=== PATIENT | female | born 1965 | race African-American/Black ===

== ENCOUNTER 2019-06-29 13:35 | Observation (INO) ==
[2019-06-29] MEDS ORDERED: ASPIRIN 325 MG TABLET PO STA (14:07)
[2019-06-29] MEDS ORDERED: NITROGLYCERIN SL 0.4 MG TABLET SL PRN (14:07)
[2019-06-29 15:02] LABS: Basophils % 0.4 % (0.0-0.8); Eosinophils # 0.1 10*3/uL (0.0-0.87); Eosinophils % 1.1 % (0.00-10.9); Hematocrit 40.5 VOL% (35.7-47.0); Hemoglobin 12.4 GM/DL (12.0-16.0); Immature Granulocytes % 0.2 %; Immature Granulocytes Absolute 0.02 #; Lymphocytes # 2.6 10*3/uL (1.4-4.0); Lymphocytes % 30.7 % (21.3-54.2); Mean Corpuscular HGB Conc 30.6 GM/DL (32-36); Mean Corpuscular Volume 84.9 FL (87-102); Monocytes % 6.2 % (1.7-12.7); Neutrophils % 61.4 % (38.7-73.9); Platelet Count 442 T/CUMM (130-400); Red Blood Count 4.77 MC/CUMM (3.8-5.5); White Blood Count 8.3 T/CUMM (4-12)
[2019-06-29 15:20] LABS: Calcium 9.2 MG/DL (8.5-10.1); Osmolality,Calculated 274.5 MOS/KG (273-304)
[2019-06-29] MEDS ORDERED: LABETALOL 20 MG/4 ML SYRINGE IV STA (17:27)
[2019-06-29] MEDS ORDERED: ACETAMINOPHEN 325 MG TABLET PO PRN (17:36)
[2019-06-29] MEDS ORDERED: INFLUENZA VIRUS VACCINE 0.5 ML SYRINGE IM ONE (20:57)
[2019-06-29] MEDS: cefTRIAXone 1,000 MG in SYRINGE 1 EACH IV SCH (22:10)
[2019-06-30 06:12] LABS: Basophils % 0.6 % (0.0-0.8); Eosinophils # 0.2 10*3/uL (0.0-0.87); Eosinophils % 2.2 % (0.00-10.9); Hematocrit 38.5 VOL% (35.7-47.0); Immature Granulocytes % 0.3 %; Immature Granulocytes Absolute 0.02 #; Lymphocytes # 2.9 10*3/uL (1.4-4.0); Mean Corpuscular HGB Conc 31.2 GM/DL (32-36); Mean Platelet Volume 8.8 FL (9.6-12.0); Monocytes % 7.6 % (1.7-12.7); Neutrophils % 46.3 % (38.7-73.9); Platelet Count 370 T/CUMM (130-400); Red Blood Count 4.53 MC/CUMM (3.8-5.5); Red Cell Distribution Width 15.1 % (9.3-17.3); White Blood Count 6.8 T/CUMM (4-12)
[2019-06-30 06:43] LABS: Calcium 8.9 MG/DL (8.5-10.1); Osmolality,Calculated 276.4 MOS/KG (273-304)
[2019-06-30] MEDS ORDERED: PANTOPRAZOLE 40 MG TABLET PO SCH (09:00)
[2019-06-30] MEDS ORDERED: POTASSIUM CHLORIDE 20 MEQ TABLET PO ONE (10:00)
[2019-06-30] MEDS ORDERED: BISACODYL 5 MG TABLET PO ONE (10:00)
[2019-06-30] MEDS ORDERED: BISACODYL 5 MG TABLET PO SCH ×2 (10:00→21:00)
[2019-06-30] MEDS: LISINOPRIL/HCTZ 20-12.5 MG TABLET PO SCH (10:24)
[2019-06-30] MEDS: ESCITALOPRAM 10 MG TABLET PO SCH (10:24)
[2019-06-30] MEDS: MECLIZINE 12.5 MG TABLET PO SCH (10:24)
[2019-06-30] MEDS: POLYETHYLENE GLYCOL POWDER 255 GM BOTTLE PO SCH (10:25)
[2019-06-30] MEDS ORDERED: POTASSIUM CHLORIDE 20 MEQ TABLET PO PRN (12:48)
[2019-06-30] MEDS: POTASSIUM CHLORIDE 20 MEQ/15 ML UDCUP PO SCH ×2 (15:49→21:51)
[2019-06-30] MEDS: BISACODYL 5 MG TABLET PO SCH (15:49)
[2019-06-30] MEDS ORDERED: POLYETHYLENE GLYCOL POWDER 255 GM BOTTLE NG ONE (18:00)
[2019-06-30] MEDS ORDERED: MAGNESIUM CITRATE 300 ML BOTTLE PO ONE (21:00)
[2019-06-30] MEDS ORDERED: ARIPiprazole 10 MG TABLET PO SCH (21:00)
[2019-06-30] MEDS: PANTOPRAZOLE 40 MG TABLET PO SCH (21:51)
[2019-06-30] MEDS: cefTRIAXone 1,000 MG in SYRINGE 1 EACH IV SCH (22:48)
[2019-06-30] MEDS: ONDANSETRON 4 MG/2 ML VIAL IV PRN (22:48)
[2019-07-01] MEDS: BISACODYL 5 MG TABLET PO SCH ×2 (05:56→06:44)
[2019-07-01] MEDS ORDERED: LINACLOTIDE 145 MCG CAPSULE PO SCH (07:30)
[2019-07-01] MEDS ORDERED: POTASSIUM CHLORIDE RIDER 10 MEQ in PREMIX 1 EACH IV SCH (07:30)
[2019-07-01] MEDS ORDERED: MAGNESIUM CITRATE 300 ML BOTTLE NG ONE (07:30)
[2019-07-01] MEDS ORDERED: POTASSIUM CHLORIDE 20 MEQ/15 ML UDCUP PO ONE (07:30)
[2019-07-01] MEDS: ONDANSETRON 4 MG/2 ML VIAL IV PRN (07:43)
[2019-07-01 07:44] LABS: Albumin 3.2 G/DL (3.4-5.0); Bilirubin,Total 0.4 MG/DL (0.2-1.0); Calcium 8.9 MG/DL (8.5-10.1); Osmolality,Calculated 273.5 MOS/KG (273-304); Thyroid Stimulating Hormone 2.56 uIU/ml (0.358-3.74); Total Protein 7.4 G/DL (6.4-8.3)
[2019-07-01] MEDS ORDERED: LACTATED RINGERS 1,000 ML IV SCH (08:30)
[2019-07-01] MEDS ORDERED: LIDOCAINE 2% 5 ML VIAL ONE (08:35)
[2019-07-01] MEDS ORDERED: PROPOFOL 200 MG/20 ML VIAL IV ONE (08:35)
[2019-07-01] MEDS: LISINOPRIL/HCTZ 20-12.5 MG TABLET PO SCH (11:10)
[2019-07-01] MEDS: MECLIZINE 12.5 MG TABLET PO SCH (11:11)
[2019-07-01] MEDS: ESCITALOPRAM 10 MG TABLET PO SCH (11:11)
[2019-07-01] MEDS: PANTOPRAZOLE 40 MG TABLET PO SCH (11:11)
[2019-07-01] MEDS: POLYETHYLENE GLYCOL POWDER 255 GM BOTTLE PO SCH (11:12)
[2019-07-01] MEDS: POTASSIUM CHLORIDE 20 MEQ/15 ML UDCUP PO SCH (11:46)
[2019-07-01 15:55] VITALS: BP 114/56
== END 2019-07-01 16:30 ==
LOC: EDUNIT# → EDBD → N.ED 13:35 → N.EDINP 13:35 → N.2E 19:41
PROVIDERS: ADMIT Internal Medicine; ATTEND Internal Medicine

== ENCOUNTER 2020-07-21 21:20 | Inpatient (IN) ==
[2020-07-21 22:03] LABS: Basophils % 0.4 % (0.0-0.8); Eosinophils # 0.2 10*3/uL (0.0-0.87); Hematocrit 32.9 VOL% (35.7-47.0); Hemoglobin 10.4 GM/DL (12.0-16.0); Immature Granulocytes % 0.4 %; Immature Granulocytes Absolute 0.02 #; Lymphocytes # 1.1 10*3/uL (1.4-4.0); Lymphocytes % 19.1 % (21.3-54.2); Mean Corpuscular HGB Conc 31.6 GM/DL (32-36); Mean Corpuscular Volume 89.9 FL (87-102); Mean Platelet Volume 8.7 FL (9.6-12.0); Monocytes % 14.1 % (1.7-12.7); Platelet Count 290 T/CUMM (130-400); Red Blood Count 3.66 MC/CUMM (3.8-5.5); Red Cell Distribution Width 14.6 % (9.3-17.3); White Blood Count 5.6 T/CUMM (4-12)
[2020-07-21] MEDS ORDERED: SODIUM CHLORIDE 0.9% 1,000 ML IV STA (22:20)
[2020-07-21 22:24] LABS: INR 1.1; PT Patient Result 11.3 SECS (9.8-11.9)
[2020-07-21 22:33] LABS: Alanine Aminotransferase 54 U/L (13-56); Albumin 3.4 G/DL (3.4-5.0); Alkaline Phosphatase 51 U/L (45-117); Aspartate Amino Transferase 49 U/L (0-37); Bilirubin,Total < 0.39 MG/DL (0.2-1.0); Blood Urea Nitrogen 16 MG/DL (7-18); Calcium 8.7 MG/DL (8.5-10.1); Carbon Dioxide 28 MMOL/L (21-32); Estimated Glom Filtration Rate 66 ML/MIN; Ferritin 34.2 ng/ml (8-252); Glucose 97 MG/DL (74-106); Osmolality,Calculated 277.5 MOS/KG (273-304); Potassium 3.8 MMOL/L (3.5-5.1); Sodium 139 MMOL/L (136-145); Total Protein 6.9 G/DL (6.4-8.3)
[2020-07-21] MEDS ORDERED: AZITHROMYCIN INJ 500 MG in SODIUM CHLORIDE 0.9% 250 ML IV STA (22:41)
[2020-07-21] MEDS ORDERED: ACETAMINOPHEN 325 MG TABLET PO PRN (22:44)
[2020-07-21] MEDS ORDERED: ONDANSETRON 4 MG/2 ML VIAL IV PRN (22:44)
[2020-07-21 22:50] LABS: Bilirubin,Urine Negative (Negative); Blood, Urine Negative (Negative); Glucose,Urine (UA) Negative (Negative); Hyaline Casts,Urine 142 /LPF (0-3); Ketones,Urine Negative (Negative); Mucus,Urine Occasional /LPF (Occasional); Nitrite,Urine Negative (Negative); Protein,Urine Negative; RBC,Urine 1 /HPF (0-4); Squamous Epithelial Cell,Urine Occasional /HPF (0-10); Urine Appearance CLEAR (Clear); Urine Color Amber (Yellow); Urine Specific Gravity 1.024 (1.001-1.035); WBC,Urine <1 /HPF (0-6)
[2020-07-21] MEDS: SODIUM CHLORIDE 0.9% 1,000 ML IV SCH (23:40)
[2020-07-22 05:56] LABS: Basophils % 0.3 % (0.0-0.8); Eosinophils # 0.1 10*3/uL (0.0-0.87); Eosinophils % 1.9 % (0.00-10.9); Hematocrit 33.1 VOL% (35.7-47.0); Hemoglobin 10.4 GM/DL (12.0-16.0); Immature Granulocytes % 0.3 %; Immature Granulocytes Absolute 0.02 #; Lymphocytes # 1.4 10*3/uL (1.4-4.0); Lymphocytes % 21.5 % (21.3-54.2); Mean Corpuscular HGB Conc 31.4 GM/DL (32-36); Mean Corpuscular Volume 91.7 FL (87-102); Mean Platelet Volume 9.4 FL (9.6-12.0); Monocytes % 17.4 % (1.7-12.7); Neutrophils % 58.6 % (38.7-73.9); Platelet Count 295 T/CUMM (130-400); Red Blood Count 3.61 MC/CUMM (3.8-5.5); Red Cell Distribution Width 14.6 % (9.3-17.3); White Blood Count 6.3 T/CUMM (4-12)
[2020-07-22 06:19] LABS: Albumin 3.2 G/DL (3.4-5.0); Calcium 8.7 MG/DL (8.5-10.1); Osmolality,Calculated 273.7 MOS/KG (273-304); Potassium 3.7 MMOL/L (3.5-5.1); Total Protein 7.2 G/DL (6.4-8.3)
[2020-07-22 06:58] LABS: Band Neutrophils 3 % (0-10); Eosinophils 2 % (0-10); Hypochromasia 1+; Lymphocytes 16 % (20-55); Segmented Neutrophils 69 % (50-85); Total Cells Counted 100
[2020-07-22 06:59] LABS: Microcytosis 1+; Platelet Estimate Normal
[2020-07-22] MEDS: PANTOPRAZOLE 40 MG VIAL IV SCH (10:08)
[2020-07-22] MEDS: SODIUM CHLORIDE 0.9% 1,000 ML IV SCH ×2 (10:11→18:22)
[2020-07-22] MEDS: methylPREDNISolone SOD SUC 40 MG/1 ML VIAL IV SCH ×2 (12:02→22:30)
[2020-07-22] MEDS ORDERED: REMDESIVIR 200 MG in SODIUM CHLORIDE 0.9% 210 ML IV ONE (15:00)
[2020-07-22] MEDS: IBUPROFEN 600 MG TABLET PO PRN (18:21)
[2020-07-22] MEDS: AZITHROMYCIN INJ 500 MG in SODIUM CHLORIDE 0.9% 250 ML IV SCH (21:10)
[2020-07-23] MEDS: SODIUM CHLORIDE 0.9% 1,000 ML IV SCH ×2 (00:22→13:17)
[2020-07-23] MEDS: methylPREDNISolone SOD SUC 40 MG/1 ML VIAL IV SCH ×2 (12:45→21:25)
[2020-07-23] MEDS: REMDESIVIR 100 MG in SODIUM CHLORIDE 0.9% 100 ML IV SCH (12:45)
[2020-07-23] MEDS: PANTOPRAZOLE 40 MG VIAL IV SCH (13:10)
[2020-07-23] MEDS: IBUPROFEN 600 MG TABLET PO PRN (13:11)
[2020-07-23] MEDS ORDERED: FUROSEMIDE 40 MG/4 ML VIAL IV ONE (15:00)
[2020-07-23] MEDS: VANCOMYCIN INJ 1,250 MG in SODIUM CHLORIDE 0.9% 250 ML IV SCH (18:30)
[2020-07-23] MEDS: AZITHROMYCIN INJ 500 MG in SODIUM CHLORIDE 0.9% 250 ML IV SCH (21:25)
[2020-07-24] MEDS: methylPREDNISolone SOD SUC 40 MG/1 ML VIAL IV SCH ×2 (05:45→13:37)
[2020-07-24] MEDS: VANCOMYCIN INJ 1,250 MG in SODIUM CHLORIDE 0.9% 250 ML IV SCH ×2 (05:47→16:37)
[2020-07-24] MEDS: IBUPROFEN 600 MG TABLET PO PRN (08:49)
[2020-07-24] MEDS: FUROSEMIDE 40 MG/4 ML VIAL IV SCH (08:50)
[2020-07-24] MEDS: PANTOPRAZOLE 40 MG VIAL IV SCH (08:50)
[2020-07-24 09:12] LABS: Hematocrit 32.8 VOL% (35.7-47.0); Hemoglobin 10.7 GM/DL (12.0-16.0); Immature Granulocytes % 0.3 %; Immature Granulocytes Absolute 0.01 #; Lymphocytes # 1.5 10*3/uL (1.4-4.0); Lymphocytes % 42.2 % (21.3-54.2); Mean Corpuscular HGB Conc 32.6 GM/DL (32-36); Mean Corpuscular Volume 87.9 FL (87-102); Mean Platelet Volume 8.8 FL (9.6-12.0); Monocytes % 4.6 % (1.7-12.7); Neutrophils % 52.9 % (38.7-73.9); Platelet Count 312 T/CUMM (130-400); Red Blood Count 3.73 MC/CUMM (3.8-5.5); Red Cell Distribution Width 14.1 % (9.3-17.3)
[2020-07-24 09:14] LABS: White Blood Count 3.5 T/CUMM (4-12)
[2020-07-24 09:36] LABS: Alanine Aminotransferase 48 U/L (13-56); Albumin 3.1 G/DL (3.4-5.0); Alkaline Phosphatase 42 U/L (45-117); Aspartate Amino Transferase 46 U/L (0-37); Bilirubin,Total < 0.39 MG/DL (0.2-1.0); Blood Urea Nitrogen 9 MG/DL (7-18); Carbon Dioxide 27 MMOL/L (21-32); Estimated Glom Filtration Rate 135 ML/MIN; Glucose 117 MG/DL (74-106); Osmolality,Calculated 282.1 MOS/KG (273-304); Potassium 3.7 MMOL/L (3.5-5.1); Sodium 142 MMOL/L (136-145); Total Protein 6.9 G/DL (6.4-8.3)
[2020-07-24] MEDS: REMDESIVIR 100 MG in SODIUM CHLORIDE 0.9% 100 ML IV SCH (10:09)
[2020-07-24] MEDS: FAMOTIDINE 20 MG TABLET PO SCH (17:43)
[2020-07-24] MEDS: POTASSIUM CHLORIDE 10 MEQ TABLET PO SCH (17:43)
[2020-07-24] MEDS: DEXAMETHASONE 4 MG/1 ML VIAL IV SCH (17:43)
[2020-07-24] MEDS: ASPIRIN EC 81 MG TABLET PO SCH (17:43)
[2020-07-24] MEDS: traMADol 50 MG TABLET PO SCH ×2 (17:44→21:00)
[2020-07-24] MEDS: BENZONATATE 100 MG CAPSULE PO SCH (21:00)
[2020-07-24] MEDS: AZITHROMYCIN INJ 500 MG in SODIUM CHLORIDE 0.9% 250 ML IV SCH (21:00)
[2020-07-24] MEDS: MELATONIN 3 MG TABLET PO SCH (21:00)
[2020-07-24] MEDS: KETOROLAC 15 MG/1 ML VIAL IM SCH (21:56)
[2020-07-25] MEDS: DEXAMETHASONE 4 MG/1 ML VIAL IV SCH ×3 (00:52→16:27)
[2020-07-25] MEDS: VANCOMYCIN INJ 1,250 MG in SODIUM CHLORIDE 0.9% 250 ML IV SCH ×2 (05:36→16:29)
[2020-07-25] MEDS: KETOROLAC 15 MG/1 ML VIAL IM SCH ×3 (05:37→21:29)
[2020-07-25 06:43] LABS: Hematocrit 33.5 VOL% (35.7-47.0); Hemoglobin 10.6 GM/DL (12.0-16.0); Immature Granulocytes % 0.5 %; Immature Granulocytes Absolute 0.02 #; Lymphocytes # 1.5 10*3/uL (1.4-4.0); Lymphocytes % 34.7 % (21.3-54.2); Mean Corpuscular HGB Conc 31.6 GM/DL (32-36); Mean Corpuscular Volume 88.9 FL (87-102); Mean Platelet Volume 9.9 FL (9.6-12.0); Monocytes % 5.6 % (1.7-12.7); Neutrophils % 59.2 % (38.7-73.9); Platelet Count 352 T/CUMM (130-400); Red Blood Count 3.77 MC/CUMM (3.8-5.5); White Blood Count 4.4 T/CUMM (4-12)
[2020-07-25 07:08] LABS: Alanine Aminotransferase 39 U/L (13-56); Albumin 3.1 G/DL (3.4-5.0); Alkaline Phosphatase 44 U/L (45-117); Aspartate Amino Transferase 21 U/L (0-37); Bilirubin,Total < 0.39 MG/DL (0.2-1.0); Blood Urea Nitrogen 14 MG/DL (7-18); Calcium 8.2 MG/DL (8.5-10.1); Carbon Dioxide 28 MMOL/L (21-32); Estimated Glom Filtration Rate 128 ML/MIN; Glucose 105 MG/DL (74-106); Osmolality,Calculated 281.3 MOS/KG (273-304); Potassium 3.2 MMOL/L (3.5-5.1); Sodium 141 MMOL/L (136-145); Total Protein 7.2 G/DL (6.4-8.3)
[2020-07-25] MEDS: FAMOTIDINE 20 MG TABLET PO SCH (08:55)
[2020-07-25] MEDS: LINACLOTIDE 145 MCG CAPSULE PO SCH (08:55)
[2020-07-25] MEDS: BENZONATATE 100 MG CAPSULE PO SCH ×3 (08:56→20:51)
[2020-07-25] MEDS: ASPIRIN EC 81 MG TABLET PO SCH (08:56)
[2020-07-25] MEDS: POTASSIUM CHLORIDE 10 MEQ TABLET PO SCH (08:56)
[2020-07-25] MEDS: traMADol 50 MG TABLET PO SCH ×4 (08:56→20:52)
[2020-07-25] MEDS: FUROSEMIDE 40 MG/4 ML VIAL IV SCH (08:57)
[2020-07-25] MEDS: PANTOPRAZOLE 40 MG VIAL IV SCH (08:58)
[2020-07-25] MEDS: REMDESIVIR 100 MG in SODIUM CHLORIDE 0.9% 100 ML IV SCH (09:21)
[2020-07-25] MEDS: NYSTATIN 500,000 UNIT/5 ML UDCUP SWISH/SWAL SCH (20:51)
[2020-07-25] MEDS: MELATONIN 3 MG TABLET PO SCH (20:51)
[2020-07-25] MEDS: AZITHROMYCIN INJ 500 MG in SODIUM CHLORIDE 0.9% 250 ML IV SCH (21:29)
[2020-07-26] MEDS: KETOROLAC 15 MG/1 ML VIAL IV SCH ×4 (00:09→22:02)
[2020-07-26] MEDS: POTASSIUM CHLORIDE 20 MEQ TABLET PO PRN ×2 (00:10→02:53)
[2020-07-26] MEDS: DEXAMETHASONE 4 MG/1 ML VIAL IV SCH ×3 (01:30→16:53)
[2020-07-26 06:50] LABS: Hematocrit 32.2 VOL% (35.7-47.0); Hemoglobin 10.3 GM/DL (12.0-16.0); Immature Granulocytes % 0.2 %; Immature Granulocytes Absolute 0.01 #; Lymphocytes # 1.5 10*3/uL (1.4-4.0); Lymphocytes % 27.4 % (21.3-54.2); Mean Corpuscular Volume 89.2 FL (87-102); Mean Platelet Volume 9.8 FL (9.6-12.0); Monocytes % 3.8 % (1.7-12.7); Neutrophils % 68.6 % (38.7-73.9); Platelet Count 324 T/CUMM (130-400); Red Blood Count 3.61 MC/CUMM (3.8-5.5); Red Cell Distribution Width 14.1 % (9.3-17.3); White Blood Count 5.5 T/CUMM (4-12)
[2020-07-26 07:16] LABS: Calcium 7.9 MG/DL (8.5-10.1); Osmolality,Calculated 285.1 MOS/KG (273-304); Potassium 3.5 MMOL/L (3.5-5.1)
[2020-07-26] MEDS: traMADol 50 MG TABLET PO SCH ×4 (09:39→22:02)
[2020-07-26] MEDS: LINACLOTIDE 145 MCG CAPSULE PO SCH (09:39)
[2020-07-26] MEDS: ASPIRIN EC 81 MG TABLET PO SCH (09:39)
[2020-07-26] MEDS: POTASSIUM CHLORIDE 20 MEQ TABLET PO SCH ×2 (09:39→22:01)
[2020-07-26] MEDS: BENZONATATE 100 MG CAPSULE PO SCH ×3 (09:40→22:04)
[2020-07-26] MEDS: FAMOTIDINE 20 MG TABLET PO SCH (09:40)
[2020-07-26] MEDS: FUROSEMIDE 40 MG/4 ML VIAL IV SCH (09:40)
[2020-07-26] MEDS: PANTOPRAZOLE 40 MG VIAL IV SCH (09:41)
[2020-07-26] MEDS: NYSTATIN 500,000 UNIT/5 ML UDCUP SWISH/SWAL SCH ×4 (09:42→22:03)
[2020-07-26] MEDS: VANCOMYCIN INJ 1,250 MG in SODIUM CHLORIDE 0.9% 250 ML IV SCH ×2 (09:52→16:50)
[2020-07-26] MEDS: REMDESIVIR 100 MG in SODIUM CHLORIDE 0.9% 100 ML IV SCH (13:08)
[2020-07-26] MEDS: MELATONIN 3 MG TABLET PO SCH (22:01)
[2020-07-26] MEDS: AZITHROMYCIN INJ 500 MG in SODIUM CHLORIDE 0.9% 250 ML IV SCH (22:07)
[2020-07-27] MEDS: VANCOMYCIN INJ 1,250 MG in SODIUM CHLORIDE 0.9% 250 ML IV SCH ×3 (05:00→16:47)
[2020-07-27 06:05] LABS: Basophils % 0.2 % (0.0-0.8); Hematocrit 33.4 VOL% (35.7-47.0); Hemoglobin 10.8 GM/DL (12.0-16.0); Immature Granulocytes % 0.3 %; Immature Granulocytes Absolute 0.02 #; Lymphocytes # 1.8 10*3/uL (1.4-4.0); Lymphocytes % 26.9 % (21.3-54.2); Mean Corpuscular HGB Conc 32.3 GM/DL (32-36); Mean Corpuscular Volume 88.4 FL (87-102); Mean Platelet Volume 9.8 FL (9.6-12.0); Monocytes % 8.9 % (1.7-12.7); Neutrophils % 63.7 % (38.7-73.9); Platelet Count 343 T/CUMM (130-400); Red Blood Count 3.78 MC/CUMM (3.8-5.5); Red Cell Distribution Width 14.1 % (9.3-17.3); White Blood Count 6.6 T/CUMM (4-12)
[2020-07-27 06:42] LABS: Calcium 8.1 MG/DL (8.5-10.1); Osmolality,Calculated 278.5 MOS/KG (273-304); Potassium 3.9 MMOL/L (3.5-5.1)
[2020-07-27] MEDS: DEXAMETHASONE 4 MG/1 ML VIAL IV SCH ×3 (07:56→16:48)
[2020-07-27] MEDS: PANTOPRAZOLE 40 MG VIAL IV SCH (09:00)
[2020-07-27] MEDS: NYSTATIN 500,000 UNIT/5 ML UDCUP SWISH/SWAL SCH ×4 (09:01→22:02)
[2020-07-27] MEDS: POTASSIUM CHLORIDE 20 MEQ TABLET PO SCH ×2 (09:01→22:02)
[2020-07-27] MEDS: ASPIRIN EC 81 MG TABLET PO SCH (09:01)
[2020-07-27] MEDS: FUROSEMIDE 40 MG/4 ML VIAL IV SCH (09:01)
[2020-07-27] MEDS: FAMOTIDINE 20 MG TABLET PO SCH (09:01)
[2020-07-27] MEDS: BENZONATATE 100 MG CAPSULE PO SCH ×3 (09:01→22:02)
[2020-07-27] MEDS: traMADol 50 MG TABLET PO SCH ×4 (09:01→21:45)
[2020-07-27] MEDS: KETOROLAC 15 MG/1 ML VIAL IV SCH ×3 (09:02→22:04)
[2020-07-27] MEDS: LINACLOTIDE 145 MCG CAPSULE PO SCH (09:19)
[2020-07-27] MEDS ORDERED: POTASSIUM CHLORIDE 20 MEQ TABLET PO ONE (13:53)
[2020-07-27] MEDS: MELATONIN 3 MG TABLET PO SCH (22:02)
[2020-07-27] MEDS: AZITHROMYCIN INJ 500 MG in SODIUM CHLORIDE 0.9% 250 ML IV SCH (22:04)
[2020-07-28] MEDS: DEXAMETHASONE 4 MG/1 ML VIAL IV SCH ×2 (00:18→10:00)
[2020-07-28] MEDS: VANCOMYCIN INJ 1,250 MG in SODIUM CHLORIDE 0.9% 250 ML IV SCH (05:10)
[2020-07-28] MEDS: KETOROLAC 15 MG/1 ML VIAL IV SCH (06:14)
[2020-07-28 08:16] VITALS: BP 103/57
[2020-07-28] MEDS: PANTOPRAZOLE 40 MG VIAL IV SCH (10:02)
[2020-07-28] MEDS: FUROSEMIDE 40 MG/4 ML VIAL IV SCH (10:02)
[2020-07-28] MEDS: POTASSIUM CHLORIDE 20 MEQ TABLET PO SCH (10:03)
[2020-07-28] MEDS: traMADol 50 MG TABLET PO SCH (10:03)
[2020-07-28] MEDS: BENZONATATE 100 MG CAPSULE PO SCH (10:03)
[2020-07-28] MEDS: FAMOTIDINE 20 MG TABLET PO SCH (10:03)
[2020-07-28] MEDS: ASPIRIN EC 81 MG TABLET PO SCH (10:03)
[2020-07-28] MEDS: NYSTATIN 500,000 UNIT/5 ML UDCUP SWISH/SWAL SCH (10:03)
[2020-07-28] MEDS: LINACLOTIDE 145 MCG CAPSULE PO SCH (10:04)
== END 2020-07-28 11:06 | DRG 177 ==
LOC: N.ED 21:20 → N.EDINP 21:20 → N.2E 23:54 → UNDODISIN 07-27 17:21
PROVIDERS: ADMIT Internal Medicine; ATTEND Internal Medicine

== ENCOUNTER 2022-08-10 19:32 | Observation (INO) ==
[2022-08-10] MEDS ORDERED: ASPIRIN 325 MG TABLET PO STA (19:52)
[2022-08-10] MEDS ORDERED: MORPHINE 2 MG/1 ML SYRINGE IV STA (19:52)
[2022-08-10] MEDS ORDERED: ONDANSETRON 4 MG/2 ML VIAL IV STA (19:52)
[2022-08-10 21:03] LABS: Alanine Aminotransferase 18 U/L (13-56); Albumin 3.3 G/DL (3.4-5.0); Alkaline Phosphatase 38 U/L (45-117); Aspartate Amino Transferase 14 U/L (0-37); Bilirubin,Total < 0.39 MG/DL (0.20-1.00); Blood Urea Nitrogen 14 MG/DL (7-18); Calcium 9.1 MG/DL (8.5-10.1); Carbon Dioxide 27 MMOL/L (21-32); Chloride 105 MMOL/L (98-107); Glucose 89 MG/DL (74-106); Osmolality,Calculated 276.5 MOS/KG (273-304); Potassium 3.7 MMOL/L (3.5-5.1); Sodium 139 MMOL/L (136-145); Total Protein 7.4 G/DL (6.4-8.2)
[2022-08-10 21:24] LABS: Basophils % 0.5 % (0.0-0.8); Eosinophils # 0.2 10*3/uL (0.0-0.87); Eosinophils % 2.2 % (0.00-10.9); Hematocrit 36.9 VOL% (35.7-47.0); Hemoglobin 12.2 GM/DL (12.0-16.0); Immature Granulocytes % 0.4 %; Immature Granulocytes Absolute 0.03 #; Lymphocytes # 2.8 10*3/uL (1.4-4.0); Lymphocytes % 33.5 % (21.3-54.2); Mean Corpuscular HGB Conc 33.1 GM/DL (32-36); Mean Corpuscular Volume 93.9 FL (87-102); Mean Platelet Volume 8.7 FL (9.6-12.0); Monocytes # 0.4 10*3/uL (0.11-0.8); Monocytes % 5.3 % (1.7-12.7); Neutrophils % 58.1 % (38.7-73.9); Platelet Count 272 T/CUMM (130-400); Red Blood Count 3.93 MC/CUMM (3.8-5.5); Red Cell Distribution Width 13.2 % (9.3-17.3); White Blood Count 8.4 T/CUMM (4-12)
[2022-08-10 21:36] LABS: INR 0.9; PT Patient Result 10.3 SECS (10.1-12.1); Partial Thromboplastin Time 27.6 SECS (23.7-32.9)
[2022-08-10] MEDS ORDERED: ONDANSETRON 4 MG/2 ML VIAL IV PRN (23:37)
[2022-08-10] MEDS ORDERED: ACETAMINOPHEN 325 MG TABLET PO PRN (23:37)
[2022-08-10] MEDS ORDERED: GLUCAGON 1 MG VIAL IM PRN (23:37)
[2022-08-10] MEDS ORDERED: DEXTROSE 10% 250 ML BAG IV PRN (23:40)
[2022-08-11] MEDS ORDERED: HEPARIN LOCK FLUSH 500 UNIT/5 ML SYRINGE IV ONE (00:18)
[2022-08-11] MEDS: INSULIN LISPRO 100 UNIT/ML SUBCUT SCH ×4 (07:55→21:06)
[2022-08-11] MEDS: DOCUSATE SODIUM 100 MG CAPSULE PO SCH ×2 (08:59→21:06)
[2022-08-11] MEDS ORDERED: PANTOPRAZOLE 40 MG TABLET PO SCH (09:00)
[2022-08-11] MEDS ORDERED: BENZONATATE 100 MG CAPSULE PO PRN (10:53)
[2022-08-11] MEDS ORDERED: POLYVINYL 0.5%/POVIDONE 0.6% OPH SOLN 15 ML BOTTLE BOTH EYES PRN (10:55)
[2022-08-11] MEDS: PREGABALIN 50 MG CAPSULE PO SCH ×2 (11:08→23:17)
[2022-08-11] MEDS ORDERED: MELATONIN 3 MG TABLET PO SCH (21:00)
[2022-08-11] MEDS ORDERED: MIRTAZAPINE 15 MG TABLET PO SCH (21:00)
[2022-08-11] MEDS: BACLOFEN 10 MG TABLET PO SCH (21:04)
[2022-08-11] MEDS: metFORMIN 500 MG TABLET PO SCH (21:05)
[2022-08-11] MEDS: PANTOPRAZOLE 40 MG TABLET PO SCH (21:06)
[2022-08-12] MEDS: INSULIN LISPRO 100 UNIT/ML SUBCUT SCH ×2 (07:39→13:43)
[2022-08-12] MEDS ORDERED: buPROPion SR 100 MG TABLET PO SCH (09:00)
[2022-08-12] MEDS ORDERED: ESCITALOPRAM 10 MG TABLET PO SCH (09:00)
[2022-08-12] MEDS ORDERED: DOCUSATE SODIUM 100 MG CAPSULE PO SCH (09:00)
[2022-08-12] MEDS ORDERED: LINACLOTIDE 145 MCG CAPSULE PO SCH (09:00)
[2022-08-12] MEDS ORDERED: predniSONE 5 MG TABLET PO SCH (09:00)
[2022-08-12] MEDS: metFORMIN 500 MG TABLET PO SCH (09:47)
[2022-08-12] MEDS: BACLOFEN 10 MG TABLET PO SCH (09:47)
[2022-08-12] MEDS: DOCUSATE SODIUM 100 MG CAPSULE PO SCH (09:47)
[2022-08-12] MEDS: PANTOPRAZOLE 40 MG TABLET PO SCH (09:48)
[2022-08-12] MEDS: PREGABALIN 50 MG CAPSULE PO SCH (10:28)
[2022-08-12 12:51] VITALS: BP 122/66
== END 2022-08-12 13:45 ==
LOC: N.EDINP 19:32 → N.ED 19:32 → N.TELES 23:19
PROVIDERS: ADMIT Internal Medicine; ATTEND Internal Medicine